=== PATIENT | female | born 1935 | race Caucasian/White ===

== ENCOUNTER → 2017-12-12 12:18 | Outpatient (CLI) | payer MEDICARE, SELFPAY ==
--- NOTE | 2017-12-12 | DI.US.S_ITS ---
ULTRASOUND OF LEFT BREAST: 12/12/2017 CLINICAL: Patient returns today to evaluate a focal asymmetry in the left breast. Comparison is made to exams dated: 10/31/2017 mammogram and 11/21/2017 mammogram - [facility]. Color flow and real-time ultrasound of the left breast were performed on the areas of interest. Stover scale images of the real-time examination were reviewed. There is a region in the left breast at 12 o'clock middle depth. This region is hypoechoic. Color flow imaging demonstrates that there is no increase in vascularity. It is unclear if this corresponds with the mammographic finding. IMPRESSION: PROBABLY BENIGN - FOLLOW-UP RECOMMENDED The hypoechoic region in the left breast likely represents fibroglandular tissue and is probably benign. A follow-up mammogram and an ultrasound in 6 months is recommended to demonstrate stability. This exam was interpreted at Station ID: [id number]. Electronically Signed By: Lela escobar/:12/12/2017 14:55:02 letter sent: Followup Recommended Ultrasound BI-RADS: 3 Probably benign
== END ==
PROVIDERS: PCP Family Medicine Geriatric Medicine; Visit Provider Physician Assistant Medical
DX: R92.2 Inconclusive mammogram (principal)
CPT/HCPCS: 76642

== ENCOUNTER → 2018-06-20 12:46 | Outpatient (CLI) | payer MEDICARE, SELFPAY ==
--- NOTE | 2018-06-20 | DI.US.S_ITS ---
ULTRASOUND OF LEFT BREAST: 06/20/2018 CLINICAL: Patient returns for a 6 month follow up of the left breast. Comparison is made to exams dated: 06/20/2018 mammogram, 12/12/2017 ultrasound - [facility], and 11/21/2017 mammogram - [facility]. Color flow and real-time ultrasound of the left breast were performed on the areas of interest. Stover scale images of the real-time examination were reviewed. There is a region in the left breast at 12 o'clock middle depth. This region is hypoechoic. Color flow imaging demonstrates that there is no increase in vascularity. IMPRESSION: PROBABLY BENIGN The region in the left breast likely represents fibroglandular tissue and is probably benign. A follow-up ultrasound in 6 months is recommended to demonstrate stability. This exam was interpreted at Station ID: [id number]. Electronically Signed By: Lela escobar/:06/20/2018 16:28:19 letter sent: Followup Recommended Ultrasound BI-RADS: 3 Probably benign
--- NOTE | 2018-06-20 | DI.MG.S_ITS ---
UNILATERAL LEFT DIGITAL DIAGNOSTIC MAMMOGRAM 3D/2D SHORT-TERM FOLLOW-UP: 06/20/2018 CLINICAL: Patient returns for a 6 month follow up of the left breast. Comparison is made to exams dated: 11/21/2017 mammogram, 10/31/2017 mammogram, and 10/25/2016 mammogram - [facility]. The tissue of left breast is heterogeneously dense. This may lower the sensitivity of mammography. No significant masses, calcifications, or other findings are seen in the breast. IMPRESSION: NEGATIVE There is no mammographic abnormality seen in the left breast to correspond with the previous mammography finding on the mammogram dated 11/21/17. Return to annual screening mammogram. A targeted ultrasound of the left breast is recommended to evaluate the previous ultrasound finding on the comparison study dated 12/12/17 and will be performed immediately following this exam. This exam was interpreted at Station ID: [id number]. NOTE: For mammograms, a report in lay terms will be sent to the patient. Approximately 15% of breast malignancies will not be visualized mammographically. In the management of a palpable breast mass, a negative mammogram must not discourage biopsy of a clinically suspicious lesion. Electronically Signed By: Lela escobar/:06/20/2018 16:30:22 letter sent: Additional Imaging Needed ACR BI-RADS Category 1: Negative [id number]
== END ==
PROVIDERS: Visit Provider Family Medicine
DX: R92.8 Other abnormal and inconclusive findings on diagnostic imaging of breast (principal)
CPT/HCPCS: 76642; 77065; G0279

== ENCOUNTER 2019-09-10 15:27 | Inpatient (IN) | payer MEDICARE, SELFPAY ==
[2019-09-05 13:57] VITALS: BMI 31.8
[2019-09-09] VITALS (12 sets, daily range): BP systolic 105–152; BP diastolic 39–72; PULSE 67–84; RESP 12–18; TEMP 35.9–37.1; O2SAT 92–100; BMI 32.8
--- NOTE | 2019-09-09 | DI.RAD.S_ITS ---
PROCEDURE: XR KNEE RT 1TO2V INDICATIONS: POST-OP TOTAL KNEE ARTHROPLASTY-RIGHT TECHNIQUE: 2 view(s) of the knee acquired. COMPARISON: None. FINDINGS: Bones: Patient is status post knee joint arthroplasty. Hardware components are in expected positions. Visualized bony structures are intact. Soft tissues: Overlying postoperative changes are noted. IMPRESSION: Expected appearance of total right knee arthroplasty. Dictated by: Emma Sosa M.D. on 09/09/2019 at 20:02 Approved by: Emma Sosa M.D. on 09/09/2019 at 20:03
[2019-09-09] MEDS: PREGABALIN 75 MG CAPSULE PO (12:46)
[2019-09-09] MEDS: ACETAMINOPHEN 325 MG TABLET 975 MG PO (12:46)
[2019-09-09] MEDS: CELECOXIB 200 MG CAPSULE PO (12:46)
--- NOTE | 2019-09-09 15:18 | PM.PREOP ---
Pre-operative Note Interval Note History & Physical reviewed/Exam performed by Physician: Yes Changes to H&P: No H&P completed within 30 days and has changed as indicated here:: Plan for R TKA
[2019-09-09] MEDS: LACTATED RINGERS 1,000 ML 42 ML IV ×2 (15:30→17:01)
[2019-09-09] MEDS: CEFAZOLIN 2 GM/100 ML FROZ.PIGGY IV (16:05)
--- NOTE | 2019-09-09 16:36 | SUR.OPER ---
Supine on padded OR bed. Pillow under head, arms secured on padded armboards <90 degree abduction. Bump under right hip. Safety belt across torso. Non-operative leg secured with tape over blanket over lower leg. Operative leg positioned on Dr. Asher's positioner.
[2019-09-09] MEDS: ROPIVACAINE 0.5% PF 5 MG/ML 20ML VIAL 60 ML INJ (16:51)
[2019-09-09] MEDS: MORPHINE 4 MG/ML INJ INJ (16:52)
[2019-09-09] MEDS: KETOROLAC 30 MG/ML VIAL IV (16:52)
[2019-09-09] MEDS: TRANEXAMIC ACID 1,000 MG VIAL 1000 MG INJ ×2 (16:53→18:02)
--- NOTE | 2019-09-09 18:16 | PM.OP.1 ---
Operative Date/Time/Diagnoses Date of procedure: 09/09/19 Time of procedure: 18:17 Pre-op diagnosis: R knee OA Post-op diagnosis: same Procedure & Clinicians Procedure: R TKA Same procedure as scheduled: Yes Indications: Right knee OA Surgeon: Neal Asher Follow Up Clerk: Karla Adames Anesthesia Type: General and Spinal Operative Notes Findings: Right knee OA with patellar mal-tracking Closure Type: primary Specimen(s): none sent Prosthetic devices, grafts, tissues, transplants, or devices: Reina and Nephew Journey II BCS size 3 right femur Reina [employer] Nephew Journey II BCS size 3 right tibia with 12 x100mm stem reina and Nephew Journey II BCS 10mm constrained poly 29mm x 7.5 mm poly round button Estimated Blood Loss (mL): 200 Tourniquet time (min): 90 Procedure in detail: Patient was met in the preoperative holding area the site and side of surgery marked by MD. Yan questions were answered. Patient was then brought back to the operating room with a received a spinal anesthetic and placed supine and placed under general anesthesia. The right lower extremity was prepped and draped in normal sterile fashion A time-out was performed verifying the site and side of surgery as well as into the patient. A 15 cm long incision in line with the long axis of the leg was made over the patella. Sharp dissection was carried down to the level of the quad tendon. A medial parapatellar arthrotomy was then performed. A medial peel of the MCL was then performed as well as removal of Hoffa's fat pad. Large osteophytes were then removed from the femur and patella at this time. The lateral meniscus was then removed as well as the ACL and PCL. A drill was used to enter the femoral canal. Same drill was then used to enter the tibial canal. The distal femoral cutting block was then placed and backed off 2 mm. Distal femoral cut was then made. Drop lorenzo was then placed on the center of the tibial canal and our tibial cutting block was then placed. We used external alignment as well as intramedullary guidance for placement of her tibial cutting block. Once the tibial cut was made tibial piece of bone was removed along with the medial meniscus. At this point due to poor bone quality we decided that we would add a stem to the tibial tray. Within use the spacer block to confirm that our extension space was good with a little tight on the lateral side a pie crusting of lateral structures of the performed. The balancing block was then used to guide our external rotation of the femoral component as well as the verification based off of our epicondylar axis. We sized to a size 3 femur this was then pinned in place and the anterior-posterior and chamfer cuts were then made. The box cut was then also performed. The tibial tray was then inserted with a 9 mm PS trial poly and floating technique was used to place our external rotation of her tibial component. This was then marked. Tray was then removed as well as the femoral trial components and the tibial tray was pinned in place and we drilled and punched for the tibial tray as well as the 12 mm x 100 mm tibial stem. We then turned our attention to the patella and this was freehand cut taking care to make a conservative cut. A 29 mm round patellar button was then chosen. This was then drilled for and a trial button was placed and brought through range of motion the patella tracked well. All trial components were then removed the bone was cleaned with pulse lavage a periarticular injection was then performed and a cement restrictor was placed down the center of the tibial canal. Cement was then placed down our tibial drill hole as well as on the tibial cut surface and the walk back of the tibial component. This was then placed and excess cement was removed. Cement was then placed on the distal femoral cut anterior femoral cut the anterior chamfer and the posterior chamber. As well as the feet of the femoral component. This was then malleted into place as well. A 9 mm PS poly was then placed and the knee was brought to full extension and the tibia was held in internal rotation. The patella button was then cemented. And a clamp was placed. Betadine was then placed into the surgical site while the cement cured. Once cement was cured Betadine was suctioned away and the joint was copiously irrigated with normal saline. The poly was then removed and a 10 mm constrained poly was trialed. This achieved better stability. A 10 mm constrained poly final insert was selected. The back knee was thoroughly cleaned of soft tissue and the poly was snapped into place. The medial parapatellar arthrotomy was closed with 1. Vicryl in interrupted fashion followed by a 1. Vicryl in the fat layer as a running suture followed by 2 Vicryl in the subcutaneous tissue followed by a strata fix the subcuticular tissue. A isma dressing was then applied. Complications: none Post-operative Condition: stable Disposition: PACU Plan for aftercare: Weightbearing as tolerated right lower extremity, ASA 81 mg b.i.d. for DVT prophylaxis.
--- NOTE | 2019-09-09 19:09 | SUR.PHASEI ---
Patient A/O. Denies pain/nausea. Garrett MARSHALL.
[2019-09-09] MEDS: LACTATED RINGERS 1,000 ML 125 ML IV (20:30)
[2019-09-09] MEDS: ACETAMINOPHEN 325 MG TABLET 650 MG PO (21:29)
[2019-09-09] MEDS: DOCUSATE 100 MG CAPSULE PO (21:29)
[2019-09-09] MEDS: ASPIRIN EC 81 MG TABLET PO (21:29)
[2019-09-09 21:48] LABS: Add Manual Diff / Slide Review NO; Basophils Absolute Auto 100 /uL (0-100); Basophils Percent Auto 0.4 % (0-2); Eosinophils Absolute Auto 100 /uL (0-450); Eosinophils Percent Auto 0.6 % (2-4); Hematocrit 34.6 % (36-46); Hemoglobin 11.6 g/dL (12.0-16.0); Lymphocytes Absolute Auto 1600 /uL (1100-4500); Lymphocytes Percent Auto 13.7 % (25-40); Mean Corpuscular HGB Conc 33.7 % (30-36); Mean Corpuscular Hemoglobin 31.9 PG (26-34); Mean Corpuscular Volume 94.8 fL (80-100); Monocytes Absolute Auto 600 /uL (0-900); Monocytes Percent Auto 4.8 % (3-14); Neutrophils Absolute Auto 9500 /uL (1500-7000); Neutrophils Percent Auto 80.5 % (50-75); Platelet Count 222 X10^3/uL (150-400); Red Blood Cell Count 3.65 X10^6/uL (4.0-5.2); Red Cell Distribution Width 13.7 % (11.6-14.8); White Blood Cell Count 11.8 X10^3/uL (4.5-11.0)
[2019-09-09] MEDS: SODIUM CHLORIDE 0.9% 1,000 ML 100 ML IV (23:24)
[2019-09-10] MEDS: OXYCODONE IR 5 MG TABLET PO (00:27)
[2019-09-10] MEDS: CEFAZOLIN 2 GM/100 ML FROZ.PIGGY IV ×2 (00:27→09:22)
[2019-09-10 04:32] VITALS: BP 143/65; PULSE 93; RESP 16; TEMP 36.8; O2SAT 93
--- NOTE | 2019-09-10 04:56 | DI.RAD.S_ITS ---
PROCEDURE: XR KNEE RT 1TO2V INDICATIONS: Patient lowered decent to floor TECHNIQUE: 2 view(s) of the knee acquired. COMPARISON: [facility], CR, XR KNEE RT 1TO2V, 09/09/2019, 18:46. FINDINGS: Bones: Patient is status post knee joint arthroplasty. Hardware components are in expected positions. Visualized bony structures are intact. Soft tissues: Overlying postoperative changes are noted. IMPRESSION: Expected postsurgical change for right knee arthroplasty. Dictated by: Corine Hollingsworth MD, PhD on 09/10/2019 at 9:15 Approved by: Corine Hollingsworth MD, PhD on 09/10/2019 at 9:16
[2019-09-10 05:57] LABS: Hematocrit 32.6 % (36-46); Hemoglobin 11.1 g/dL (12.0-16.0)
[2019-09-10] MEDS: ONDANSETRON 4 MG/2 ML INJ IV (06:16)
--- NOTE | 2019-09-10 06:38 | PC.NURSE ---
Pt had been AxOx4 at start of shift; At around 0415 pt was found on floor in room. This nurse was actually standing outside the room next door doing another admission and did not hear any bump or thud but heard a faint hello hello and pt was lying next to bed. Pt reports not hitting head, reports not further hurting knee. IV was ripped out, SCDs ripped off, she climbed over the side rails. She answered all questions appropriately while sitting on floor and states just wanting to get up to go to the [place]. She was clearly disoriented to some degree but able to correctly answer all other neuro questions. She had received 5mg Oxycodone more than 4hours prior to fall. Dr. Asher was called and ordered an x-ray of her knee and said he would assess pt in the morning. She was hoyered back into bed. Pt had also not voided since prior to surgery. She attempted many times to pee on bed tenorio unsuccessfully. She was bladder scanned at 0500 showing only 150cc urine. Dr. Asher notified and said to straight cath patient. She was straight cath'ed at 0600 and only 130cc dark pratik urine came out. IV was replaced and IVF restarted. She reports feeling a bit nauseous this morning. LOIS dressing has been functioning properly throughout shift.
--- NOTE | 2019-09-10 07:52 | P.PN_ITS ---
Subjective Subjective Date Patient Seen: 09/10/19 Time Patient Seen: 07:52 Interval history: POD #1 s/p right total knee arthroplasty with Dr. Asher. Patient became confused last night and she states she slowly fell to the ground. She states she was wrapped up into her blankets and very slowly fell onto the ground. Patient was unable to void. She was straight cathed with 130 cc of urine output this morning. Exam Vital Signs (past 8 hours): - 09/10/19 04:32 Temperature 98.3 F Pulse Rate 93 H Respiratory Rate 16 Blood Pressure 143/65 H Pulse Oximetry 93 Oxygen Delivery Method Room Air Oxygen Flow Rate 0 Narrative Exam Narrative: Patient lying in bed in NAD. She is alert and oriented X3. Patient was then sat up on edge of bed and she was able to straight leg raise and fully extend. Calves are soft, compressible, nontender bilaterally. Pulses are symmetrical. She is able to actively dorsiflex and plantar flex. Objective Labs Result Diagrams: 09/10/19 05:30 Labs: Laboratory Results - last 24 hr 09/09/19 09/10/19 21:40 05:30 WBC 11.8 H RBC 3.65 L Hgb 11.6 L 11.1 L Hct 34.6 L 32.6 L MCV 94.8 MCH 31.9 MCHC 33.7 RDW 13.7 Plt Count 222 Neut % (Auto) 80.5 H Lymph % (Auto) 13.7 L [place] % (Auto) 4.8 Eos % (Auto) 0.6 L Baso % (Auto) 0.4 Neut # (Auto) 9500 H Lymph # (Auto) 1600 [place] # (Auto) 600 Eos # (Auto) 100 Baso # (Auto) 100 Assessment & Plan Post-op Postoperative Procedures: Procedures Operation Date: 09/09/19 14:15 Actual Procedures Side Surgeon p Total Knee Arthroplasty Right Neal Asher MD Patient is no longer confused this morning. Would recommend limiting narcotics. If patient has to be straight cathed again recommending Cha for 24 hours. She will get 1 L bolus IV fluids. X-rays reviewed today demonstrating no fractures. Dr. Asher reviewed films as well. Due to patient's level of confusion last night, and acute urinary retention recommending inpatient status. When she was working with Physical therapy this morning she was a max assist. I am recommending she discharge to SNF for continued recovery after surgery. Quality VTE Deep Vein Thrombosis/Pulmonary Embolism Present on Admission: No
--- NOTE | 2019-09-10 07:58 | DI.RAD.S_ITS ---
PROCEDURE: XR KNEE RT 1TO2V INDICATIONS: fall last night TECHNIQUE: A set of 2 views of the knee were acquired. COMPARISON: [facility], CR, XR KNEE RT 1TO2V, 09/10/2019, 5:09. [facility], CR, XR KNEE RT 1TO2V, 09/09/2019, 18:46. FINDINGS: Bones: No fractures or dislocations, and the right total knee arthroplasty devices appear stable over time. No suspicious bony lesions. Soft tissues: No joint effusion. No suspicious soft tissue calcifications. There is, however, edema and heterogeneous radiodensity within the ventral soft tissues of the distal thigh seen on the lateral view, potentially an indication of soft tissue injury, muscular tear, or hematoma. IMPRESSION: No fracture found, stable appearance of total right knee a arthroplasty devices. Irregular heterogeneity in the soft tissues ventral to the knee and distal thigh consistent with potential hematoma or muscular tear. Depending on the clinical status followup by MR scanning may be warranted. Dictated by: Arnol Bravo M.D. on 09/10/2019 at 9:01 Approved by: Arnol Bravo M.D. on 09/10/2019 at 9:04
[2019-09-10] MEDS: SODIUM CHLORIDE 0.9% 1,000 ML 1000 ML IV (08:14)
[2019-09-10 08:49] VITALS: BP 130/71; PULSE 80; RESP 16; TEMP 36.4; O2SAT 98
[2019-09-10] MEDS: ASPIRIN EC 81 MG TABLET PO ×2 (09:21→21:47)
[2019-09-10] MEDS: DOCUSATE 100 MG CAPSULE PO ×2 (09:21→21:47)
[2019-09-10] MEDS: ACETAMINOPHEN 325 MG TABLET 650 MG PO ×3 (09:22→21:47)
--- NOTE | 2019-09-10 10:05 | PC.NURSE ---
Addendum entered by Ivana Marie R.N. 09/10/19 13:47: Patient just voided 250cc and bladder scanned for 0. There is an order for wallace placement if she cant void. Not placed yet as she did go. Addendum entered by Ivana Marie R.N. 09/10/19 13:09: Patient just voided 250cc on the bsc. She is back to bed. Resting comfortably. Original Note: Patient is A&Ox3, she knows not to try and get out of bed. No problems with cognition this morning. Patient states that last night, [place]. She states that she slid out of bed. Dressing to knee is cdi. Patient tried to void on the bsc but was unable...Will keep and eye on this and if she does not go in a couple of hours we will bladder scan her. Given tylenol for discomfort of around a 3/4 to knee.
--- NOTE | 2019-09-10 10:15 | PT.IIE ---
Current Diagnoses Unilateral primary osteoarthritis, right knee (09/09/19) Other specified joint disorders, right knee (09/09/19) Surgery Performed Operation Date: 09/09/19 14:15 Actual Procedures p Total Knee Arthroplasty(Right) - Neal sAher MD Surgical History (Last Updated 09/05/19 @ 14:17 by Vivian Rodgers RN) H/O removal of cyst (Acute ~1972) Hx of bilateral cataract extraction (Acute) Medical History (Last Updated 09/05/19 @ 14:17 by Vivian Rodgers RN) Hearing impaired (Acute) Incontinence (Acute) Osteoarthritis (Acute) Physical Therapy Inpatient Evaluation/Re-Eval M1 PT/OT-IP Prior Functional Status Start: 09/10/19 12:44 Freq: NEEDED Status: Active Protocol: Document 09/10/19 10:15 AB (Rec: 09/10/19 13:06 AB [email or web address]) Medical Review Prior Functional Status Medical History Reviewed Yes Communication able to make needs known but with some confusion Mobility and Gait pt staetd that she is modified independent with all mobilities and ambulation without AD indoors but occasionally uses a SPC; uses SPC outdoors Social History Household Members none Living Arrangements House Number of Floors (Floors) One Floor Number of Stairs To Enter/Railing? 2 steps to enter with L rail Home Environment High Toilet,Walk in Shower Home Equipment Front Wheel Walker,Hand Held Shower,Grab Bars In Shower M2 PT-IP Current Condition Start: 09/10/19 12:44 Freq: NEEDED Status: Active Protocol: Document 09/10/19 10:15 AB (Rec: 09/10/19 13:06 AB [email or web address]) Physical Therapy Current Condition Current Condition Evaluation Date 09/10/19 Treatment Diagnosis s/p R TKA; difficulty in walking Onset Date 09/09/2019 Precautions Other Precautions falls Weight Bearing Status Weight Bearing Status Weight Bear as Tolerated Allowed Weight Bearing Amount (enter % WBAT RLE or #) (%) M3 PT-IP Subjective Start: 09/10/19 12:44 Freq: NEEDED Status: Active Protocol: Document 09/10/19 10:15 AB (Rec: 09/10/19 13:06 AB [email or web address]) Subjective Physical Therapy Visit Type Type Initial Evaluation Visit Start Time 10:15 Visit Stop Time 11:03 Total Visit Minutes 48 Number of SEXUAL ASSAULT COUNSELOR Visits 0 Physical Therapy Visit Comments Patient Comments pt agreeable to do PT Therapy Pain Assessment Pain When Pain Assessed At Rest Pain Present Pain Present Pain Reported Location Right Knee Intensity 2 Scale Used Numeric (1 - 10) Pain Management Techniques Apply Cold,Re-positioning, Timing of Activity with Medications M4 PT-IP Mobility and Gait Start: 09/10/19 12:44 Freq: NEEDED Status: Active Protocol: Document 09/10/19 10:15 AB (Rec: 09/10/19 13:06 AB [email or web address]) PT-Bed Mobility Assessment Rolling Level of Assist Maximal Assistance,1 Person Assistance,2 Person Assistance Supine to Sit Supine to Sit Maximum Assistance,1 Person Assistance,2 Person Assistance PT-Transfer Assessment Sit to and From Stand Sit to and from Stand Maximum Assistance,2 Person Assistance,Use of Upper Extremities Equipment Transfer Assistive Device Gait Belt,Front Wheeled Walker Orthotic/Prosthetic Devices or Brace: No Transfers Transfer Destination Chair Transfer Technique Stand Step Pivot Transfer Ability Level of Assist Moderate Assistance,Maximum Assistance,1 Person Assistance ,Use of Upper Extremities Comments Mobility Comments completed supine to sit max A x 1-2 and max cues. pt was able to sit on EOB requiring mod A for balance with increase posterior trunk lean requiring cues to correct posture. pt completed sit to stand max A x 2 and max cues with increase knee pushing against the bed and max cues for upright posture. pt completed stand step transfer using FWW to the chair max A x 1-2 and max cues. pt agreed to do more ambulatiion and completed in room. agreed to sit up on chair. positioned on chair. ice pack provided. call light and table placed within reach. Gait Assessment Gait Gait Assistance Required: Moderate Assistance,Maximum Assistance,1 Person Assist Distance (Feet) 10 Able to Maintain Weight Bearing Status Yes During Gait Assistive Devices Assistive Device Gait Belt,Small Based Quad Cane,Front Wheeled Walker Gait Deviations General Gait Pattern Antalgic,Decreased Stride Length,Decreased Feet Clearance,Step-to Gait Factors Limiting Gait Function Factors Limiting Gait Function Decreased Activity Tolerance, Decreased Strength,Difficulty Following Directions,Limited Range of Motion,Pain,Poor Balance,Poor Safety Awareness Comments Gait Comments completed ambulation 10 ft using FWW mod to max A and max cues. PT-Balance Assessment Sitting Balance and Reactions Static Sitting Balance Ability Fair Dynamic Sitting Balance Ability Poor Standing Balance and Reactions Static Standing Balance Ability Poor Dynamic Standing Balance Ability Poor Device Used FWW M5 PT-IP Objective Assessments Start: 09/10/19 12:44 Freq: NEEDED Status: Active Protocol: Document 09/10/19 10:15 AB (Rec: 09/10/19 13:06 AB [email or web address]) Orientation Orientation/Cognition Level of Alertness Alert Orientation Name,Age,Month,Year,Place, Situation Safety Awareness Decreased Safety Awareness Memory Description Short Term Impaired Gross Range of Motion Lower Extremity ROM Assessment Right Impaired Impairments R knee flexion : ~ 60 deg Strength Lower Extremity Strength Assessment Right Impaired Hip 3+/5 Knee 3-/5 Coordination Assessment Gross Coordination Gross Coordination WNL Sensation Assessment Sensation Gross Sensation WNL Muscle Tone Muscle Tone WNL Yes M6 PT-IP Treatment Start: 09/10/19 12:44 Freq: NEEDED Status: Active Protocol: Document 09/10/19 10:15 AB (Rec: 09/10/19 13:06 AB [email or web address]) Physical Therapy Treatment Exercises Exercises Heel Slides Education Education Provided Precautions,Weight Bearing Status,Post-Op Packet,Safety M7 PT-IP Assessment and Plan Start: 09/10/19 12:44 Freq: NEEDED Status: Active Protocol: Document 09/10/19 10:15 AB (Rec: 09/10/19 13:06 AB [email or web address]) PT Summary Assessment and Plan Potential Rehabilitation Potential Good Status of Condition at Evaluation Evolving Summary Impairments Pain,ROM,Strength,Balance, Coordination,Sensation,Tone, Cognition,Bed Mobility, Transfers,Gait,Activity Tolerance Assessment Summary pt requiring 2 person assist for mobility at this time. pt lives alone and will not have consistent assistance at home . pt will require SNF rehab to improve strength and independence. Goals Bed Mobility Goal Standby Assistance Transfer Goal Standby Assistance,Front Wheeled Walker Gait Goal Standby Assistance,Front Wheel Walker Gait Distance 100 Other Goals up/down 2 steps L rail ascending CGA Days to Meet Goals 10 Frequency of Treatment Frequency Of Treatment Twice a Day Treatment Plan Physical Therapy Treatment Plan Bed Mobility Training,Transfer Training,Gait Training, Therapeutic Exercise,Balance Retraining,Post Op Education, Discharge Planning,Hot or Cold Pack,Neuromuscular Re-ed, Coordination Retraining,Manual Therapy Other Recommendations and Next Treatment ambulation Focus Recommendations To Nursing Amount of Assist Needed 2 Person Assist Discharge Recommendations PT Discharge Recommendations SNF Rehab Transportation Needs at Discharge Private Vehicle,Wheelchair/ Cabulance
--- NOTE | 2019-09-10 12:14 | CM.DANOTE ---
Addendum entered by Willow Richardson LPN 09/10/19 15:46: Admission status: now confirmed by KITA Garcia: Change from OBS to INPT: as of 09/10/19. Addendum entered by Willow Richardson LPN 09/10/19 12:58: [facility] has accepted pt when stable for same. Original Note: Discharge Planning/Care Management DCP: assessment: Case received, EMR reviewed and met with pt and a friend, at bedside. Pt gives permission to speak while her friend is in the room. Introduced self and role. Pt is an 84 year old female who admitted yesterday for a planned R TKA. ugeon: Dr. Asher PCP: Ritika Ocampo/[facility] in Monday. Payer: Medicare [facility] Admission status: INPT: per KITA Garcia: he adds that date of INPT order is still under review (either 17 or 18). Pt confirms that [place] live alone[place] but that first she is planning snf level rehab. She confirms she was aware that admission status would affect her abilitiy to access her Medicare snf benefit and I was prepared to pay for this privately if I had to. SNF choice list: discussed: decision: [facility]: now [facility] ([facility]) Referral: [facility] is reviewing, has a bed and anticipates acceptance. PASRR: will be needed. P: [facility] when stable for same CM Discharge Assessment Start: 09/10/19 12:10 Freq: Status: Active Protocol: Document 09/10/19 12:10 ITV (Rec: 09/10/19 12:13 ITV [id number]) Discharge Planning Assessment Advance Directives? Yes Advance Directives on File No History Provided By Patient,Medical Record Prior Living Arrangements House Household Members none Is patient alert and oriented? Yes: appears so at time of this meeting. Patient/Family Preference Long-Term Facility Medicare Choice List Provided Yes Whiteboard Updated in Patient Room with Yes name and ext. # of Battery Technician Pre-Anesthesia Assessment Start: 09/05/19 13:57 Freq: Status: Active Protocol: Document 09/05/19 13:57 CAB (Rec: 09/05/19 14:46 CAB [id number]) Pre-Anesthesia Assessment Patient Information Reviewed Via Phone Assessment Assessment Completed With Patient Diagnostic Results BMP/CMP,CBC,EKG Comment Outside labs/EKG(report only, no tracing) scanned to record Primary Care Provider Ritika Ocampo Primary Language [place] Splicer Helper Required No Height 160.02 cm Weight 81.647 kg Body Mass Index (BMI) 31.8 Hearing Ability Hard of Hearing Visual Assist Glasses Dentition Type Teeth, Natural Present Barriers to Learning None Hx Anesthesia Reactions No Hx Family Anesthesia Reaction No Hx Malignant Hyperthermia No Hx Blood Transfusions No Anesthesia Review Requested No Business Process Specialist Yes: Pt wants to discharge to senior care alcohol intake current alcohol intake frequency holidays/special occasions only Smoking Status Former smoker how long ago did patient quit smoking Quit 1973 Substance Use Type does not use Pain Present Pain Reported Musculoskeletal Symptoms Abnormal Gait,Difficulty Walking,Joint Pain History of Falling (Recent or History of No ) Patient is completely paralyzed or No completely immobile Prosthesis or Orthotic Device Cane Mental Status Oriented to own ability Is patient on oxygen? No Does patient have PATEL/SOB No Hx Sleep Apnea No Currently Taking a Beta Aldo No Can You Climb a Flight of Stairs Without Yes SOB Hx Chest Pain No Hx SOB No Hx Syncope or Dizziness No Anti-Coagulant Therapy No Has a Silo Filler No Cardiac Testing No Hx Pacemaker/ICD No Pacemaker Rep Required? No Cardiac Clearance Received Not Applicable Diet Type At Home Regular dysphagia No Bladder Pattern Frequency,Incontinent,Urgency Urinary Catheter Present No Hx Urinary Self Catheterization No Diabetes No Patient No Lactating No Hx Drug Resistant Organism No Presence of External or Internal Medical Yes: Bilat eye lens Devices Have you traveled outside the [facility] in the last 30 days? Marital Status / Lives With none Prior Living Arrangements House Number of Floors (Floors) One Floor Does the Patient Have Assistance After Pt does not have anyone to Surgery assist w/care @ [facility] Patient Discharge Plan Description Long-Term Facility/Rehab Comment Pt wants to go to SNF Feels Safe in Current Environment Yes Been Physically Hurt or Threatened By a No Person in Current Environment Do you have thoughts of harming yourself None or others? Are you currently considering suicide? No Do you have a plan to hurt yourself or No Plan others? Do You Have Any Spiritual Beliefs That No May Affect Your HC Choices? Do You Have Any Cultural Practices That No May Affect Your HC Choices? Comment [facility] Who Can We Speak to About Patient's Care Family, friends Identifying Code for Release of Patient Declines to issue Information Health Care Proxy/Next of Kin Vivian Keith (Friend) Health Care Proxy Emergency Contact Name Vivian Parker (Friend) Emergency Contact Advance Directives? Yes Advance Directives on File No Requested Patient Bring Advanced Yes Directives DOS PAC Instructions Do not shave/clip surgical site,Durable medical equipment ,Medications to take/avoid, Nasal antibiotic,No ETOH/ petroleum product on skin DOS, NPO,Post-op transportation,Pre -surgical wash,Sturdy shoes/ comfortable clothes,Do not bring valuables and remove jewelry
[2019-09-10 12:53] VITALS: BP 150/69; PULSE 85; RESP 16; TEMP 37.1; O2SAT 97
[2019-09-10 15:23] VITALS: BP 121/54; PULSE 76; RESP 18; TEMP 36.8; O2SAT 99
--- NOTE | 2019-09-10 15:40 | PT.IPTN ---
Current Diagnoses Unilateral primary osteoarthritis, right knee (09/09/19) Other specified joint disorders, right knee (09/09/19) Surgery Performed Operation Date: 09/09/19 14:15 Actual Procedures p Total Knee Arthroplasty(Right) - Neal Asher MD Physical Therapy Treatment Note M2 PT-IP Current Condition Start: 09/10/19 12:44 Freq: NEEDED Status: Active Protocol: Document 09/10/19 10:15 AB (Rec: 09/10/19 13:06 AB [email or web address]) Physical Therapy Current Condition Current Condition Evaluation Date 09/10/19 Treatment Diagnosis s/p R TKA; difficulty in walking Onset Date 09/09/2019 Precautions Other Precautions falls Weight Bearing Status Weight Bearing Status Weight Bear as Tolerated Allowed Weight Bearing Amount (enter % WBAT RLE or #) (%) M3 PT-IP Subjective Start: 09/10/19 12:44 Freq: NEEDED Status: Active Protocol: Document 09/10/19 15:40 AB (Rec: 09/10/19 17:48 AB [email or web address]) Subjective Physical Therapy Visit Type Type Treatment Note Visit Start Time 15:40 Visit Stop Time 16:18 Total Visit Minutes 38 Number of PUBLIC SPEAKING TEACHER Visits 0 Physical Therapy Visit Comments Patient Comments pt requested to use the toilet Therapy Pain Assessment Pain When Pain Assessed At Rest Pain Present Pain Present Pain Reported Location Right Knee Intensity 5 Scale Used Numeric (1 - 10) Pain Management Techniques Re-positioning,Timing of Activity with Medications M4 PT-IP Mobility and Gait Start: 09/10/19 12:44 Freq: NEEDED Status: Active Protocol: Document 09/10/19 15:40 AB (Rec: 09/10/19 17:48 AB [email or web address]) PT-Transfer Assessment Sit to and From Stand Sit to and from Stand Moderate Assistance,1 Person Assistance,Use of Upper Extremities Equipment Transfer Assistive Device Gait Belt,Front Wheeled Walker Orthotic/Prosthetic Devices or Brace: No Transfers Transfer Destination Toilet Transfer Technique ambulated using FWW Transfer Ability Level of Assist Moderate Assistance,1 Person Assistance,Use of Upper Extremities Comments Mobility Comments completed sit to stand mod A and cues. ambulated using FWW towards the toilet using FWW mod A and cues. was able to maintain standing balance using FWW mod A and cues while assisted with brief management. pt requested to go back on the chair and ambulated back to the chair using FWW mod A and cues. positioned pt on the chair. call light and table placed within reach. Gait Assessment Gait Gait Assistance Required: Moderate Assistance Distance (Feet) 10 Able to Maintain Weight Bearing Status Yes During Gait Assistive Devices Assistive Device Gait Belt,Front Wheeled Walker Gait Deviations General Gait Pattern Antalgic,Decreased Stride Length,Decreased Feet Clearance,Step-to Gait Factors Limiting Gait Function Factors Limiting Gait Function Decreased Activity Tolerance, Decreased Strength,Limited Range of Motion,Pain,Poor Balance,Poor Safety Awareness Comments Gait Comments ambulated using FWW ~ 10 ft x2 mod A and cues. M5 PT-IP Objective Assessments Start: 09/10/19 12:44 Freq: NEEDED Status: Active Protocol: Document 09/10/19 10:15 AB (Rec: 09/10/19 13:06 AB [email or web address]) Orientation Orientation/Cognition Level of Alertness Alert Orientation Name,Age,Month,Year,Place, Situation Safety Awareness Decreased Safety Awareness Memory Description Short Term Impaired Gross Range of Motion Lower Extremity ROM Assessment Right Impaired Impairments R knee flexion : ~ 60 deg Strength Lower Extremity Strength Assessment Right Impaired Hip 3+/5 Knee 3-/5 Coordination Assessment Gross Coordination Gross Coordination WNL Sensation Assessment Sensation Gross Sensation WNL Muscle Tone Muscle Tone WNL Yes M6 PT-IP Treatment Start: 09/10/19 12:44 Freq: NEEDED Status: Active Protocol: Document 09/10/19 15:40 AB (Rec: 09/10/19 17:48 AB [email or web address]) Physical Therapy Treatment Exercises Exercises Ankle Pumps,Quad Sets,Heel Slides Education Education Provided Safety M7 PT-IP Assessment and Plan Start: 09/10/19 12:44 Freq: NEEDED Status: Active Protocol: Document 09/10/19 15:40 AB (Rec: 09/10/19 17:48 AB [email or web address]) PT Summary Assessment and Plan Potential Rehabilitation Potential Good Summary Impairments Pain,ROM,Strength,Balance, Coordination,Sensation,Tone, Cognition,Bed Mobility, Transfers,Gait,Activity Tolerance Progress Towards Goals Slow Progress due to Pain,Slow Progress due to Activity Tolerance Assessment Summary pt requiring mod A with mobility and continues to have decrease activity tolerance also requires cues for safety. pt will require SNF rehab to improve strength and mobility . Goals Bed Mobility Goal Standby Assistance Transfer Goal Standby Assistance,Front Wheeled Walker Gait Goal Standby Assistance,Front Wheel Walker Gait Distance 100 Other Goals up/down 2 steps L rail ascending CGA Days to Meet Goals 10 Frequency of Treatment Frequency Of Treatment Twice a Day Treatment Plan Physical Therapy Treatment Plan Bed Mobility Training,Transfer Training,Gait Training, Therapeutic Exercise,Balance Retraining,Post Op Education, Discharge Planning,Hot or Cold Pack,Neuromuscular Re-ed, Coordination Retraining,Manual Therapy Other Recommendations and Next Treatment ambulation Focus Recommendations To Nursing Amount of Assist Needed 2 Person Assist Discharge Recommendations PT Discharge Recommendations SNF Rehab Transportation Needs at Discharge Private Vehicle,Wheelchair/ Cabulance
[2019-09-10] MEDS: SODIUM CHLORIDE 0.9% 1,000 ML 100 ML IV (15:45)
--- NOTE | 2019-09-10 19:21 | PC.NURSE ---
Addendum entered by Coral Young R.N. 09/10/19 22:09: Pt presents a little confused at times. Med w/tylenol for pain w/good relief. LOIS dsg CDI. Stable post op course. Call light w/in reach, bed alarm on for pt safety. Continue w/plan of care. Original Note: Pt sitting in chair, Denies discomfort LOIS dsg CDI IVF of NS @ 100cc/hr via pump infusing into the right hand w/o incidence. Satisfactory post op course. Call light w/in reach, pt calls appropriately for needs.
[2019-09-10 19:34] VITALS: BP 124/54; PULSE 77; RESP 19; TEMP 36.6; O2SAT 96
[2019-09-11] VITALS (7 sets, daily range): BP systolic 127–160; BP diastolic 55–71; PULSE 82–91; RESP 16–20; TEMP 36.8–37.4; O2SAT 94–100
[2019-09-11 06:30] LABS: Blood Urea Nitrogen 9 mg/dL (7-17); Calcium 8.6 mg/dL (8.4-10.2); Carbon Dioxide 26 mmol/L (22-32); Chloride 110 mmol/L (98-107); Estimated Glomerular Filt Rate > 60.0 mL/min (>60); Glucose 106 mg/dL (80-110); HEMOLYSIS < 15 (0-50); Potassium 3.4 mmol/L (3.4-5.1); Sodium 140 mmol/L (137-145)
--- NOTE | 2019-09-11 06:30 | PC.NURSE ---
Pt slightly confused overnight, knew she was at [facility] but unsure why she is here. Pt able to be reoriented but lasts for short time (minutes). Assured pt she is safe here and her knee surgery went well and now she is healing. Pt requested to read her book during the night and was able to fall asleep. CMS intact to right lower extremity. LOIS drain with battery indicator green. DSG to right knee intact with 1.5 inch shadow drainage. SCDs on overnight. Assisted with position change/weight shift q2hrs overnight. Bed alarm on. Pt expected to work with PT today.
--- NOTE | 2019-09-11 08:18 | PM.PNPO.1 ---
Subjective Subjective Date Patient Seen: 09/11/19 Time Patient Seen: 08:18 Interval history: Pain is moderate. Denies fever chills. No nausea vomiting. Exam Vital Signs (past 8 hours): - 09/11/19 01:30 09/11/19 05:00 Temperature 98.5 F 98.4 F Pulse Rate 82 89 Respiratory Rate 16 16 Blood Pressure 148/64 H 148/69 H Pulse Oximetry 98 100 Oxygen Delivery Method Room Air Oxygen Flow Rate 0 Narrative Exam Narrative: Pleasant 84-year-old female resting comfortably in bedside chair in no apparent distress. Right knee dressing is clean, dry and intact. Motor functions intact distal bilateral lower extremities. Sensation grossly intact to light touch. Both legs are warm and dry. Objective Labs Result Diagrams: 09/10/19 05:30 09/11/19 05:57 Labs: Laboratory Results - last 24 hr 09/11/19 05:57 Sodium 140 Potassium 3.4 Chloride 110 H Carbon Dioxide 26 BUN 9 Creatinine 0.50 L Estimated GFR > 60.0 BUN/Creatinine Ratio 18.0 Glucose 106 Calcium 8.6 Assessment & Plan Post-op Postoperative Procedures: Procedures Operation Date: 09/09/19 14:15 Actual Procedures Side Surgeon p Total Knee Arthroplasty Right Neal Asher MD postop day 2 status post right total knee arthroplasty. Patient lives alone. Currently requiring 2 person assist with physical therapy. Physical therapy is recommended senior care facility placement. Patient will mobilize with physical therapy today. Likely discharge to senior care facility tomorrow. Quality VTE Deep Vein Thrombosis/Pulmonary Embolism Present on Admission: No
--- NOTE | 2019-09-11 09:31 | PT.IPTN ---
Current Diagnoses Unilateral primary osteoarthritis, right knee (09/09/19) Other specified joint disorders, right knee (09/09/19) Surgery Performed Operation Date: 09/09/19 14:15 Actual Procedures p Total Knee Arthroplasty(Right) - Neal Asher MD Physical Therapy Treatment Note M2 PT-IP Current Condition Start: 09/10/19 12:44 Freq: NEEDED Status: Active Protocol: Document 09/10/19 10:15 AB (Rec: 09/10/19 13:06 AB [email or web address]) Physical Therapy Current Condition Current Condition Evaluation Date 09/10/19 Treatment Diagnosis s/p R TKA; difficulty in walking Onset Date 09/09/2019 Precautions Other Precautions falls Weight Bearing Status Weight Bearing Status Weight Bear as Tolerated Allowed Weight Bearing Amount (enter % WBAT RLE or #) (%) M3 PT-IP Subjective Start: 09/10/19 12:44 Freq: NEEDED Status: Active Protocol: Document 09/11/19 09:31 AB (Rec: 09/11/19 11:31 AB [id number]) Subjective Physical Therapy Visit Type Type Treatment Note Visit Start Time 09:31 Visit Stop Time 09:50 Total Visit Minutes 19 Number of INTERLINE CLERK Visits 0 Physical Therapy Visit Comments Patient Comments pt agreeable to do PT Therapy Pain Assessment Pain When Pain Assessed At Rest Pain Present Pain Present Pain Reported Location Right Knee Intensity 5 Scale Used Numeric (1 - 10) Pain Management Techniques Re-positioning,Timing of Activity with Medications M4 PT-IP Mobility and Gait Start: 09/10/19 12:44 Freq: NEEDED Status: Active Protocol: Document 09/11/19 09:31 AB (Rec: 09/11/19 11:31 AB [id number]) PT-Transfer Assessment Sit to and From Stand Sit to and from Stand Moderate Assistance,1 Person Assistance,Use of Upper Extremities Equipment Transfer Assistive Device Gait Belt,Front Wheeled Walker Orthotic/Prosthetic Devices or Brace: No Transfers Transfer Destination Toilet Transfer Technique ambulated using FWW Transfer Ability Level of Assist Moderate Assistance,1 Person Assistance,Use of Upper Extremities Comments Mobility Comments completed sit to stand mod A and cues. requested to use the toilet and completed ambulation using FWW mod A and cues. required cues for safety. required min to mod A for controlled descent to the toilet. completed sit to stand from the toilet using grab bar min A and cues. required min A to maintain standing with FWW while assisted with brief management . ambulated to the sink using FWW mod A and cues and was able to maintain standing by the sink CGA while completing handwashing. pt agreed to do more ambulation and ambulated in room ~ 30 ft using FWW mod A and cues. pt sat back on the chair. positioned on the chair. call light and table placed within reach. Gait Assessment Gait Gait Assistance Required: Moderate Assistance,1 Person Assist Distance (Feet) 30 Able to Maintain Weight Bearing Status Yes During Gait Assistive Devices Assistive Device Gait Belt,Front Wheeled Walker Orthotic/Prosthetic Devices or Brace: No Gait Deviations General Gait Pattern Antalgic,Decreased Stride Length,Decreased Feet Clearance Factors Limiting Gait Function Factors Limiting Gait Function Decreased Activity Tolerance, Decreased Strength,Difficulty Following Directions,Limited Range of Motion,Pain,Poor Balance,Poor Safety Awareness M5 PT-IP Objective Assessments Start: 09/10/19 12:44 Freq: NEEDED Status: Active Protocol: Document 09/10/19 10:15 AB (Rec: 09/10/19 13:06 AB [email or web address]) Orientation Orientation/Cognition Level of Alertness Alert Orientation Name,Age,Month,Year,Place, Situation Safety Awareness Decreased Safety Awareness Memory Description Short Term Impaired Gross Range of Motion Lower Extremity ROM Assessment Right Impaired Impairments R knee flexion : ~ 60 deg Strength Lower Extremity Strength Assessment Right Impaired Hip 3+/5 Knee 3-/5 Coordination Assessment Gross Coordination Gross Coordination WNL Sensation Assessment Sensation Gross Sensation WNL Muscle Tone Muscle Tone WNL Yes M6 PT-IP Treatment Start: 09/10/19 12:44 Freq: NEEDED Status: Active Protocol: Document 09/11/19 09:31 AB (Rec: 09/11/19 11:31 AB [id number]) Physical Therapy Treatment Exercises Exercises Quad Sets,Heel Slides Education Education Provided Safety Other Treatments Other Treatment Performed completed LE heel slides and quads sets prior to ambulation M7 PT-IP Assessment and Plan Start: 09/10/19 12:44 Freq: NEEDED Status: Active Protocol: Document 09/11/19 09:31 AB (Rec: 09/11/19 11:31 AB [id number]) PT Summary Assessment and Plan Potential Rehabilitation Potential Good Summary Impairments Pain,ROM,Strength,Balance, Coordination,Sensation,Tone, Cognition,Bed Mobility, Transfers,Gait,Activity Tolerance Progress Towards Goals Slow Progress due to Pain,Slow Progress due to Activity Tolerance Assessment Summary pt requiring progressing slowly and requires mod A with ambulation using FWW. will require 24/7 assist at this time and will need SNF rehab to improve strength and independence. Goals Bed Mobility Goal Standby Assistance Transfer Goal Standby Assistance,Front Wheeled Walker Gait Goal Standby Assistance,Front Wheel Walker Gait Distance 100 Other Goals up/down 2 steps L rail ascending CGA Days to Meet Goals 10 Frequency of Treatment Frequency Of Treatment Twice a Day Treatment Plan Physical Therapy Treatment Plan Bed Mobility Training,Transfer Training,Gait Training, Therapeutic Exercise,Balance Retraining,Post Op Education, Discharge Planning,Hot or Cold Pack,Neuromuscular Re-ed, Coordination Retraining,Manual Therapy Other Recommendations and Next Treatment ambulation Focus Recommendations To Nursing Amount of Assist Needed 1 Person Assist Discharge Recommendations PT Discharge Recommendations SNF Rehab Transportation Needs at Discharge Private Vehicle,Wheelchair/ Cabulance
[2019-09-11] MEDS: ASPIRIN EC 81 MG TABLET PO ×2 (10:34→19:59)
[2019-09-11] MEDS: ACETAMINOPHEN 325 MG TABLET 650 MG PO ×3 (10:34→19:59)
[2019-09-11] MEDS: DOCUSATE 100 MG CAPSULE PO ×2 (10:34→19:59)
--- NOTE | 2019-09-11 12:29 | CM.DPC ---
DCP Cont: Verified with Liliana at [facility] that they can accept patient. Met with patient, friend, Primitivo Romo was at bedside. Patient was sitting up in her chair. Wanted to know when she would be going over to skilled facility. Updated her that inpatient status started yesterday, 09/10, so she would need to be here until 09/13, Monday. Let her know that [facility] would provide transportation, and would let her know the time of pick up attendant. Confirmed with patient that she lives alone. She does have supportive friends in the area, but feels that she will need additional rehab before going home. Went ahead and completed PASSR. P: DCP to continue to follow. Patient can be discharged Monday to [facility]. Katharina Guerrero RN/Loin Puller
--- NOTE | 2019-09-11 14:16 | PC.NURSE ---
Assess- Patient is doing better today. She has been taking tylenol for pain and does not want to take any oxycodone as she states that it makes her confused. She is up in the chair resting, had some visitors today, and appetite is good. Up to the commode to void and sitting in chair now. Patient working with physical therapy. She will be going to the nursing home facility for physical therapy and will probably leave on monday.
--- NOTE | 2019-09-11 14:53 | PT.IPTN ---
Current Diagnoses Unilateral primary osteoarthritis, right knee (09/09/19) Other specified joint disorders, right knee (09/09/19) Surgery Performed Operation Date: 09/09/19 14:15 Actual Procedures p Total Knee Arthroplasty(Right) - Neal Asher MD Physical Therapy Treatment Note M2 PT-IP Current Condition Start: 09/10/19 12:44 Freq: NEEDED Status: Active Protocol: Document 09/10/19 10:15 AB (Rec: 09/10/19 13:06 AB [email or web address]) Physical Therapy Current Condition Current Condition Evaluation Date 09/10/19 Treatment Diagnosis s/p R TKA; difficulty in walking Onset Date 09/09/2019 Precautions Other Precautions falls Weight Bearing Status Weight Bearing Status Weight Bear as Tolerated Allowed Weight Bearing Amount (enter % WBAT RLE or #) (%) M3 PT-IP Subjective Start: 09/10/19 12:44 Freq: NEEDED Status: Active Protocol: Document 09/11/19 14:13 SP (Rec: 09/11/19 15:23 SP [email or web address]) Subjective Physical Therapy Visit Type Type Treatment Note Visit Start Time 14:13 Visit Stop Time 14:53 Total Visit Minutes 40 Number of CHIEF MAINTENANCE SUPERVISOR Visits 1 Physical Therapy Visit Comments Patient Comments Pt agreeable to PT today. Therapy Pain Assessment Pain When Pain Assessed During Mobility Pain Present Pain Present Pain Reported Location Right Knee Intensity 5 Scale Used Numeric (1 - 10) Pain Management Techniques Re-positioning M4 PT-IP Mobility and Gait Start: 09/10/19 12:44 Freq: NEEDED Status: Active Protocol: Document 09/11/19 14:13 SP (Rec: 09/11/19 15:23 SP [email or web address]) PT-Bed Mobility Assessment Supine to Sit Supine to Sit Contact Guard Assistance,Head of Bed Elevated Sit to Supine Sit to Supine Minimal Assistance,1 Person Assistance Scooting Scooting to Edge of Bed Contact Guard Assistance Scooting Up and Down in Bed Standby Assistance PT-Transfer Assessment Sit to and From Stand Sit to and from Stand Contact Guard Assistance, Minimal Assistance,Use of Upper Extremities Equipment Transfer Assistive Device Gait Belt,Front Wheeled Walker Orthotic/Prosthetic Devices or Brace: No Transfers Transfer Destination Bed,Chair Transfer Technique ambulated usign FWW Transfer Ability Level of Assist Contact Guard Assistance, Minimal Assistance,1 Person Assistance,Use of Upper Extremities Comments Mobility Comments Patient was sitting in chair when arrived. Assist requried to lower foot rest. Sit to stand Kit initially then CGA rest of performances with occasional cuing for proper hand placement for safety. Pt used FWW for support in standing and ambulted to door and little down hallway usign FWW CGA with cuing for increase R knee flexion, heel toe and step over step rather then step to gait with noted improved toward normal gait phases and foot clearance. Pt reported R knee pain decrease from 5/10 to 3/10 during mobilitiy less stiff now that up and walking around. Pt required CGA durign standing at sink to brush her teeth, educated for proper FWW positioning in front and she contacted [facility] for balance when returned from a walk, required SBA for safety. Pt was able to complete sitting to supine Min A (15 % A)for RLE into bed but educated use of gait belt for increased independence for self performance. Pt was able to lateral scoot her RLE using gait belt on foot and pelvis bridge in bed using LLE bridging technique. Elevated 40 % supine to sitting to EOB with use of strap self RLE to EOB and forward scoot herself CGA. Pt required CGA to sit to stand from EOB and step pivot to chair usign FWW with occasional awareness cue for centering in front of chair with good hand placement reaching back with slow descent. Assisted elevation of chair leg rest and donned chair alarm with call light and all needs inreach before left. Nurse and anesthesiologist assistant present during standing at sink for medication. Gait Assessment Gait Gait Assistance Required: Contact Guard Assist Distance (Feet) 100 Able to Maintain Weight Bearing Status Yes During Gait Assistive Devices Assistive Device Gait Belt,Front Wheeled Walker Orthotic/Prosthetic Devices or Brace: No Gait Deviations General Gait Pattern Antalgic,Decreased Stride Length,Decreased Feet Clearance,Step-to Gait Factors Limiting Gait Function Factors Limiting Gait Function Decreased Activity Tolerance, Decreased Strength,Difficulty Following Directions,Limited Range of Motion,Pain,Poor Balance,Poor Safety Awareness Comments Gait Comments Pt was ableto increase distance during gait this afternoon using FWW CGA, step to initially then progressed to step over step along with cuing for R knee flexion, heel toe to progress normal gait phases with good follow through. Stair Climbing Assessment Comments Stair Climbing Comments not assessed at this time. Will need to assess prior to DC home. PT-Balance Assessment Sitting Balance and Reactions Static Sitting Balance Ability Normal Dynamic Sitting Balance Ability Good Standing Balance and Reactions Static Standing Balance Ability Good Dynamic Standing Balance Ability Fair Device Used FWW M5 PT-IP Objective Assessments Start: 09/10/19 12:44 Freq: NEEDED Status: Active Protocol: Document 09/10/19 10:15 AB (Rec: 09/10/19 13:06 AB [email or web address]) Orientation Orientation/Cognition Level of Alertness Alert Orientation Name,Age,Month,Year,Place, Situation Safety Awareness Decreased Safety Awareness Memory Description Short Term Impaired Gross Range of Motion Lower Extremity ROM Assessment Right Impaired Impairments R knee flexion : ~ 60 deg Strength Lower Extremity Strength Assessment Right Impaired Hip 3+/5 Knee 3-/5 Coordination Assessment Gross Coordination Gross Coordination WNL Sensation Assessment Sensation Gross Sensation WNL Muscle Tone Muscle Tone WNL Yes M6 PT-IP Treatment Start: 09/10/19 12:44 Freq: NEEDED Status: Active Protocol: Document 09/11/19 14:13 SP (Rec: 09/11/19 15:23 SP [email or web address]) Physical Therapy Treatment Exercises Exercises Ankle Pumps,Gluteal Sets,Quad Sets,Heel Slides,Seated Knee Flexion/Extension Knee ROM Measurement approx 80* AAROM heel slide with eduacation use strap Education Education Provided Precautions,Weight Bearing Status,Post-Op Packet,Safety M7 PT-IP Assessment and Plan Start: 09/10/19 12:44 Freq: NEEDED Status: Active Protocol: Document 09/11/19 14:13 SP (Rec: 09/11/19 15:23 SP [email or web address]) PT Summary Assessment and Plan Potential Rehabilitation Potential Good Status of Condition at Evaluation Evolving Summary Impairments Pain,ROM,Strength,Balance, Coordination,Sensation,Tone, Cognition,Bed Mobility, Transfers,Gait,Activity Tolerance Progress Towards Goals Progressing Toward Goals,Slow Progress due to Pain,Slow Progress due to Activity Tolerance Assessment Summary Pt CGA- min during bed mobility see com ments, transfer CGA- min, gait CGA and balance at sink SBA usign FWW, cuing R knee flexion, heel toe gait and step over step patterning. Pt required occasional cuing for proper FWW and hand placement for safety, requires 1 person assist at this time for safety cuing. Recommend shelter for strengthening, balance, ROM and safety techniques and stair mgt training for safety DC home, lives alone and needs to be independent. Goals Bed Mobility Goal Standby Assistance Transfer Goal Standby Assistance,Front Wheeled Walker Gait Goal Standby Assistance,Front Wheel Walker Gait Distance 100 Other Goals up/down 2 steps L rail ascending CGA Days to Meet Goals 10 Frequency of Treatment Frequency Of Treatment Twice a Day Treatment Plan Physical Therapy Treatment Plan Bed Mobility Training,Transfer Training,Gait Training, Therapeutic Exercise,Balance Retraining,Post Op Education, Discharge Planning,Hot or Cold Pack,Neuromuscular Re-ed, Coordination Retraining,Manual Therapy Other Recommendations and Next Treatment ambulation possible w/c follow Focus secondary to decreased acitivity tolerance and strength, bed mobilitiy, stair mgt. Recommendations To Nursing Amount of Assist Needed 1 Person Assist Discharge Recommendations PT Discharge Recommendations SNF Rehab Transportation Needs at Discharge Private Vehicle,Wheelchair/ Cabulance
--- NOTE | 2019-09-11 17:07 | PC.NURSE ---
Addendum entered by Coral Young R.N. 09/11/19 20:51: Pt had relatively uneventful evening. Some forgetfulness later in evening, and thinking there are people in her bed. Denies discomfort. LOIS CDI. HL intact. Stable post op course. To SNF on [place] IS possible 09/13 Call light w/in reach, bed alarm on for pt safety. Continue w/plan of care. Original Note: Pt sitting in chair. Denies discomfort at this time. Lungs clear/diminished, SpO2 96% RA LOIS Dsg to surgical knee CDI HL right hand intact. Call light w/in reach. Chair alarm on for pt safety.
--- NOTE | 2019-09-12 | DI.US.S_ITS ---
PROCEDURE: US PERIPH VENOUS LOW EXTREM RT INDICATIONS: POST OP RTKA, R CALF TENDER TO PALPATION TECHNIQUE: Real-time imaging, as well as color and pulse Doppler interrogation, were performed of the lower extremity deep veins from the inguinal ligament to the popliteal fossa. The examination is very limited due to patient body habitus, extremity edema, and rigidness of the leg. COMPARISON: [facility], CR, XR KNEE RT 1TO2V, 09/10/2019, 5:09. [facility], CR, XR KNEE RT 1TO2V, 09/10/2019, 8:22. FINDINGS: The greater saphenous vein, common femoral vein, and profunda femoris vein 8 shows normal flow without thrombus. The proximal superficial femoral vein appears patent as does the middle third of the distal superficial femoral vein cannot be identified as a normal patent structure. The at the popliteal fossa a normal popliteal vein also could not be identified with internal normal flow. IMPRESSION: The study is quite limited as discussed above, with venous ultrasound findings suggestive of thrombosis involving the distal superficial femoral vein and popliteal vein. CT venogram could be utilized for more accurate assessment. Dictated by: Arnol Bravo M.D. on 09/13/2019 at 8:40 Approved by: Arnol Bravo M.D. on 09/13/2019 at 8:45
[2019-09-12 03:50] VITALS: BP 145/64; PULSE 81; RESP 18; TEMP 36.7; O2SAT 95
[2019-09-12 07:38] VITALS: BP 152/59; PULSE 79; RESP 16; TEMP 36.7; O2SAT 99
[2019-09-12] MEDS: ASPIRIN EC 81 MG TABLET PO ×2 (08:52→20:25)
[2019-09-12] MEDS: DOCUSATE 100 MG CAPSULE PO ×2 (08:52→20:24)
[2019-09-12] MEDS: ACETAMINOPHEN 325 MG TABLET 650 MG PO ×3 (08:52→20:25)
--- NOTE | 2019-09-12 09:30 | PT.IPTN ---
Current Diagnoses Unilateral primary osteoarthritis, right knee (09/09/19) Other specified joint disorders, right knee (09/09/19) Surgery Performed Operation Date: 09/09/19 14:15 Actual Procedures p Total Knee Arthroplasty(Right) - Neal Asher MD Physical Therapy Treatment Note M2 PT-IP Current Condition Start: 09/10/19 12:44 Freq: NEEDED Status: Active Protocol: Document 09/10/19 10:15 AB (Rec: 09/10/19 13:06 AB [email or web address]) Physical Therapy Current Condition Current Condition Evaluation Date 09/10/19 Treatment Diagnosis s/p R TKA; difficulty in walking Onset Date 09/09/2019 Precautions Other Precautions falls Weight Bearing Status Weight Bearing Status Weight Bear as Tolerated Allowed Weight Bearing Amount (enter % WBAT RLE or #) (%) M3 PT-IP Subjective Start: 09/10/19 12:44 Freq: NEEDED Status: Active Protocol: Document 09/12/19 09:10 SP (Rec: 09/12/19 10:28 SP [id number]) Subjective Physical Therapy Visit Type Type Treatment Note Visit Start Time 09:10 Visit Stop Time 09:30 Total Visit Minutes 20 Number of MANAGER READING Visits 2 Physical Therapy Visit Comments Patient Comments Pt agreeable to PT today. Therapy Pain Assessment Pain When Pain Assessed During Mobility Pain Present Pain Present Pain Reported Location Right Knee Intensity 5 Scale Used Numeric (1 - 10) Pain Management Techniques Apply Cold,Re-positioning, Timing of Activity with Medications M4 PT-IP Mobility and Gait Start: 09/10/19 12:44 Freq: NEEDED Status: Active Protocol: Document 09/12/19 09:10 SP (Rec: 09/12/19 10:28 SP [email or web address]) PT-Transfer Assessment Sit to and From Stand Sit to and from Stand Contact Guard Assistance,Use of Upper Extremities Equipment Transfer Assistive Device Front Wheeled Walker Orthotic/Prosthetic Devices or Brace: No Transfers Transfer Destination Chair Transfer Technique pt ambulated using fWW. Transfer Ability Level of Assist Contact Guard Assistance,Use of Upper Extremities Comments Mobility Comments Pt was seated up in chair when arrived. Pt required assist to remove cushion under BLE to be able to scoot forward in chair herself. Sit <> stand with good verbal self reminders for form and demonstration proper hand placement to push up from chair, use of FWW. Initially step to gait pattern and heavily WB through BUE on FWW but decreased as distance progressed into hallway step to gait to step over step heel toe gait after 15 ft CGA. Pt was ableto ambulate approx 150 ft total, cued for step pivot and small turns withFWW as another strategy than wide step over step patterning, patient stated understood but minimal follow through in demostration. Pt good FWW positioning and slow descent into chair. Pt had chair alarm on and call light and all needs in reach when left. Gait Assessment Gait Gait Assistance Required: Contact Guard Assist Distance (Feet) 150 Able to Maintain Weight Bearing Status Yes During Gait Assistive Devices Assistive Device Gait Belt,Front Wheeled Walker Orthotic/Prosthetic Devices or Brace: No Gait Deviations General Gait Pattern Antalgic,Decreased Stride Length,Decreased Feet Clearance,Step-to Gait Factors Limiting Gait Function Factors Limiting Gait Function Decreased Activity Tolerance, Decreased Sensation,Decreased Strength,Difficulty Following Directions,Limited Range of Motion,Pain Comments Gait Comments Pt was ableto increase distance approx 150 ft using FWW CGA initially step to then progressed to step over step gait, wide turns, education on smaller pivot turns in hallway with difficulty understanding. Stair Climbing Assessment Comments Stair Climbing Comments not assessed. PT-Balance Assessment Sitting Balance and Reactions Static Sitting Balance Ability Normal Dynamic Sitting Balance Ability Good Standing Balance and Reactions Static Standing Balance Ability Good Dynamic Standing Balance Ability Fair Device Used FWW M5 PT-IP Objective Assessments Start: 09/10/19 12:44 Freq: NEEDED Status: Active Protocol: Document 09/10/19 10:15 AB (Rec: 09/10/19 13:06 AB [email or web address]) Orientation Orientation/Cognition Level of Alertness Alert Orientation Name,Age,Month,Year,Place, Situation Safety Awareness Decreased Safety Awareness Memory Description Short Term Impaired Gross Range of Motion Lower Extremity ROM Assessment Right Impaired Impairments R knee flexion : ~ 60 deg Strength Lower Extremity Strength Assessment Right Impaired Hip 3+/5 Knee 3-/5 Coordination Assessment Gross Coordination Gross Coordination WNL Sensation Assessment Sensation Gross Sensation WNL Muscle Tone Muscle Tone WNL Yes M6 PT-IP Treatment Start: 09/10/19 12:44 Freq: NEEDED Status: Active Protocol: Document 09/12/19 09:10 SP (Rec: 09/12/19 10:28 SP [id number]) Physical Therapy Treatment Exercises Exercises Ankle Pumps,Heel Slides,Seated Knee Flexion/Extension Knee ROM Measurement approx 80* AAROM heel slide with eduacation AROM seated Education Education Provided Precautions,Weight Bearing Status,Post-Op Packet,Safety M7 PT-IP Assessment and Plan Start: 09/10/19 12:44 Freq: NEEDED Status: Active Protocol: Document 09/12/19 09:10 SP (Rec: 09/12/19 10:28 SP [id number]) PT Summary Assessment and Plan Potential Rehabilitation Potential Good Status of Condition at Evaluation Evolving Summary Impairments Pain,ROM,Strength,Balance, Coordination,Sensation,Tone, Cognition,Bed Mobility, Transfers,Gait,Activity Tolerance Progress Towards Goals Progressing Toward Goals,Slow Progress due to Pain,Slow Progress due to Activity Tolerance Assessment Summary Pt CGA sit to stand see comments, gait CGA and heel toe gait and step over step patterning as distance progressed using FWW. Recommend [facility] for strengthening, balance, ROM and safety techniques and stair mgt training for safety DC home, lives alone and needs to be independent. Goals Bed Mobility Goal Standby Assistance Transfer Goal Standby Assistance,Front Wheeled Walker Gait Goal Standby Assistance,Front Wheel Walker Gait Distance 100 Other Goals up/down 2 steps L rail ascending CGA Days to Meet Goals 10 Frequency of Treatment Frequency Of Treatment Twice a Day Treatment Plan Physical Therapy Treatment Plan Bed Mobility Training,Transfer Training,Gait Training, Therapeutic Exercise,Balance Retraining,Post Op Education, Discharge Planning,Hot or Cold Pack,Neuromuscular Re-ed, Coordination Retraining,Manual Therapy Other Recommendations and Next Treatment ambulation, bed mobilitiy, Focus stair mgt. Recommendations To Nursing Amount of Assist Needed 1 Person Assist Discharge Recommendations PT Discharge Recommendations SNF Rehab Transportation Needs at Discharge Private Vehicle,Wheelchair/ Cabulance
[2019-09-12 10:00] VITALS: BP 131/60
[2019-09-12 11:10] VITALS: BP 123/59; PULSE 82; RESP 16; TEMP 36.7; O2SAT 96
--- NOTE | 2019-09-12 15:52 | PT.IPTN ---
Current Diagnoses Unilateral primary osteoarthritis, right knee (09/09/19) Other specified joint disorders, right knee (09/09/19) Surgery Performed Operation Date: 09/09/19 14:15 Actual Procedures p Total Knee Arthroplasty(Right) - Neal Asher MD Physical Therapy Treatment Note M2 PT-IP Current Condition Start: 09/10/19 12:44 Freq: NEEDED Status: Active Protocol: Document 09/10/19 10:15 AB (Rec: 09/10/19 13:06 AB [id number]) Physical Therapy Current Condition Current Condition Evaluation Date 09/10/19 Treatment Diagnosis s/p R TKA; difficulty in walking Onset Date 09/09/2019 Precautions Other Precautions falls Weight Bearing Status Weight Bearing Status Weight Bear as Tolerated Allowed Weight Bearing Amount (enter % WBAT RLE or #) (%) M3 PT-IP Subjective Start: 09/10/19 12:44 Freq: NEEDED Status: Active Protocol: Document 09/12/19 15:19 SP (Rec: 09/12/19 17:08 SP [id number]) Subjective Physical Therapy Visit Type Type Treatment Note Visit Start Time 15:19 Visit Stop Time 15:52 Total Visit Minutes 33 Number of [employer]TER [employer] SUPERVISOR Visits 3 Physical Therapy Visit Comments Patient Comments Pt agreeable to working with PT. Therapy Pain Assessment Pain When Pain Assessed During Mobility Pain Present Pain Present Pain Reported Location Right Knee Intensity 5 Scale Used Numeric (1 - 10) Pain Management Techniques Re-positioning,Timing of Activity with Medications M4 PT-IP Mobility and Gait Start: 09/10/19 12:44 Freq: NEEDED Status: Active Protocol: Document 09/12/19 15:19 SP (Rec: 09/12/19 17:08 SP [id number]) PT-Transfer Assessment Sit to and From Stand Sit to and from Stand Standby Assistance,Contact Guard Assistance,Use of Upper Extremities Equipment Transfer Assistive Device Gait Belt,Front Wheeled Walker Orthotic/Prosthetic Devices or Brace: No Transfers Transfer Destination Chair,Wheelchair Transfer Technique pt ambulated using fWW. Transfer Ability Level of Assist Standby Assistance,Contact Guard Assistance,Use of Upper Extremities Comments Mobility Comments Pt was up in the chair when arrived. sit <> stand SBA- CGA with from chair and use of w/ c in hallway on a further distance walk. Pt demonstrated good hand placement and body and FWW positioning for safety . Pt was up in her chair at end of tx with chair alarm donned and call light and all needs in reach when left. Gait Assessment Gait Gait Assistance Required: Contact Guard Assist Distance (Feet) 225 Able to Maintain Weight Bearing Status Yes During Gait Assistive Devices Assistive Device Gait Belt,Front Wheeled Walker Orthotic/Prosthetic Devices or Brace: No Gait Deviations General Gait Pattern Antalgic,Decreased Stride Length,Decreased Feet Clearance Factors Limiting Gait Function Factors Limiting Gait Function Decreased Activity Tolerance, Decreased Sensation,Decreased Strength,Difficulty Following Directions,Limited Range of Motion,Pain Comments Gait Comments Pt initially demonstrates step to gait when first comes to standing (using FWW CGA) then progresses to step over step stating it's a bit stiff but always loosens up when I walk further. Earlier a walk to the bathroom I the pain didn't let up but maybe it was to short of a distance. [employer] encouraged another walk before going to bed with nursing coordinator. Pt demonstrated improvement in R knee flexion and heel toe gait as distance progressed and walked further 225 ft (room to end of hallway near stair) with FWW w/c follow dur to decreased activity tolerance to get to stairs, CGA provided intially then decreased to SBA and 65 ft after 3 stair mgt. Stair Climbing Assessment Evaluation Level of Assist On Stairs Minimal Assistance,Moderate Assistance,1 Person Assistance Devices Stair Climbing Assistive Devices Left Railing Technique/Endurance Stair Climbing Direction Ascend and Descend Stair Climbing Technique Step to Step Number of Steps Climbed 3 Stair Climbing Set # Repetitions (reps) 1 Comments Stair Climbing Comments Pt was ableto ascend/descend 3 stairs using LHR with BUE slight side step descending, required Min A of 1 person to assist transition to next step step to gait leading with LLE up/ RLE down Mod A for last step and therapist supported anterior L knee to prevent buckling, noted creaking in L knee during descent more on last step then first 2. No LOB but patient exerted alot of energy, stopped for rest on 2nd step while ascending for recovery. PT-Balance Assessment Sitting Balance and Reactions Static Sitting Balance Ability Normal Dynamic Sitting Balance Ability Good Standing Balance and Reactions Static Standing Balance Ability Good Dynamic Standing Balance Ability Fair Device Used FWW M5 PT-IP Objective Assessments Start: 09/10/19 12:44 Freq: NEEDED Status: Active Protocol: Document 09/10/19 10:15 AB (Rec: 09/10/19 13:06 AB [id number]) Orientation Orientation/Cognition Level of Alertness Alert Orientation Name,Age,Month,Year,Place, Situation Safety Awareness Decreased Safety Awareness Memory Description Short Term Impaired Gross Range of Motion Lower Extremity ROM Assessment Right Impaired Impairments R knee flexion : ~ 60 deg Strength Lower Extremity Strength Assessment Right Impaired Hip 3+/5 Knee 3-/5 Coordination Assessment Gross Coordination Gross Coordination WNL Sensation Assessment Sensation Gross Sensation WNL Muscle Tone Muscle Tone WNL Yes M6 PT-IP Treatment Start: 09/10/19 12:44 Freq: NEEDED Status: Active Protocol: Document 09/12/19 15:19 SP (Rec: 09/12/19 17:08 SP [id number]) Physical Therapy Treatment Education Education Provided Precautions,Weight Bearing Status,Post-Op Packet,Safety M7 PT-IP Assessment and Plan Start: 09/10/19 12:44 Freq: NEEDED Status: Active Protocol: Document 09/12/19 15:19 SP (Rec: 09/12/19 17:08 SP [id number]) PT Summary Assessment and Plan Potential Rehabilitation Potential Good Status of Condition at Evaluation Evolving Summary Impairments Pain,ROM,Strength,Balance, Coordination,Sensation,Tone, Cognition,Bed Mobility, Transfers,Gait,Activity Tolerance Progress Towards Goals Progressing Toward Goals,Slow Progress due to Pain,Slow Progress due to Activity Tolerance Assessment Summary Pt required CGA initiallly during STS but decreased SBA during sit to stand from w/c. Pt continues to demonstrate step to gait initally but progresses to step over step heel toe gait as distance progresses using FWW CGA- SBA and w/c follow secondary to decreased activity tolerance. Pt completed stair training step to gait LHR BUE with required Min- Mod A of 1 secondary to decrease strength and activity tolerance. Pt will need to be independent prior to DC for she lives alone. Recommend [facility] for strengthening, balance, ROM and stair mgt training for safety DC home. Goals Bed Mobility Goal Standby Assistance Transfer Goal Standby Assistance,Front Wheeled Walker Gait Goal Standby Assistance,Front Wheel Walker Gait Distance 100 Other Goals up/down 2 steps L rail ascending CGA Days to Meet Goals 10 Frequency of Treatment Frequency Of Treatment Twice a Day Treatment Plan Physical Therapy Treatment Plan Bed Mobility Training,Transfer Training,Gait Training, Therapeutic Exercise,Balance Retraining,Post Op Education, Discharge Planning,Hot or Cold Pack,Neuromuscular Re-ed, Coordination Retraining,Manual Therapy Other Recommendations and Next Treatment Reassess bed mobility level of Focus independence, tranfers, and gait using FWW, stair mgt, review post op HEP. Recommendations To Nursing Amount of Assist Needed 1 Person Assist Discharge Recommendations PT Discharge Recommendations SNF Rehab Transportation Needs at Discharge Private Vehicle,Wheelchair/ Cabulance
[2019-09-12 15:56] VITALS: BP 147/62; PULSE 89; RESP 19; TEMP 37.2; O2SAT 100
--- NOTE | 2019-09-12 16:25 | P.PN_ITS ---
Subjective Subjective Date Patient Seen: 09/12/19 Time Patient Seen: 16:25 Interval history: Patient states she has no pain in right knee at rest. Has mild to moderate pain when ambulating. Complains of intermittent pain in R calf. Per nurse, patient has been forgetful. During conversation, patient had difficulty recalling previous conversations with Dr. Asher. Voiding without difficulty. Denies fever, chills, chest pain, shortness of breath, nausea, vomiting. Exam Vital Signs (past 8 hours): - 09/12/19 10:00 09/12/19 11:10 09/12/19 15:56 Temperature 98.0 F 98.9 F Pulse Rate 82 89 Respiratory Rate 16 19 Blood Pressure 131/60 123/59 L 147/62 H Pulse Oximetry 96 100 Oxygen Delivery Method Room Air Oxygen Flow Rate 0 Narrative Exam Narrative: 84 year old F, sitting comfortably in chair, in no apparent distress. A&Ox3. LOIS CDI and functioning. Sensory function grossly intact to light touch in LE BL. Able actively dorsiflex/plantar flex. R calf tender to palpation. L calf non tender to palpation, warm, compressible. Objective Labs Result Diagrams: 09/10/19 05:30 09/11/19 05:57 Assessment & Plan Post-op Postoperative Procedures: Procedures Operation Date: 09/09/19 14:15 Actual Procedures Side Surgeon p Total Knee Arthroplasty Right Neal Asher MD Postoperative plan narrative: postop day 3 status post right total knee arthroplasty. R calf tender to palpation - ordered ultrasound of RLE to r/o DVT Patient lives alone. Currently requiring 2 person assist with physical therapy. Physical therapy is recommended group home facility placement. Patient will mobilize with physical therapy today. Likely discharge to group home facility tomorrow. Time Spent With Patient Time with patient: less than 15 minutes Quality VTE Deep Vein Thrombosis/Pulmonary Embolism Present on Admission: No
[2019-09-12 19:40] VITALS: BP 142/68; PULSE 91; RESP 18; TEMP 37.3; O2SAT 97
[2019-09-13 00:15] VITALS: BP 139/69; PULSE 84; RESP 18; TEMP 37.1; O2SAT 94
[2019-09-13 03:27] VITALS: BP 165/77; PULSE 91; RESP 18; TEMP 37.1; O2SAT 98
--- NOTE | 2019-09-13 03:47 | PC.NURSE ---
Patient is alert and orientated. Patient VSS, patient denies pain while lying and has some while ambulating, but said was tolerable. Right knee is edematous 2-3+, along with bilateral ankles and feet. CMS is intact, Dressing is clean/dry and intact. Patient is ambulating to bathroom w/ 1 person assist and FWW. Bed is low and locked, call light is within reach and bed alarm is activated.
--- NOTE | 2019-09-13 07:34 | P.DS_ITS ---
History of Present Illness History of Present Illness Date Patient Seen: 09/13/19 Time Patient Seen: 07:34 Chief complaint: 92113 Right Total Kneee Arthroplasty Narrative: Patient consented to total knee arthroplasty. She failed conservative measures. Discharge Providers Provider Date of admission: 09/09/19 12:00 Discharge Date: 09/13/19 Primary care physician: Ritika Ocampo MD Consults: 09/09/19 06:00 Consult to Anesthesiology Routine Comment: Consulting Provider: Anesthesiologist Reason for consultation: Regional block for post operative pain control 09/09/19 19:37 Consult to Discharge Planning Routine Comment: Consult to Physical Therapy Evaluate & Treat Comment: Physician Instructions: postop TKA protocol Consult to Respiratory Therapy Evaluate & Treat Comment: Physician Instructions: Evaluate and treat Discharge provider: Karla Adames PA-C Summary Hospital Course Discharge Diagnosis: s/p TKA Hospital Course: Dilys admitted for total knee arthroplasty with Dr. Asher. Patient was initially confused after surgery from anesthetic and Oxycodone. She fell the night of surgery. X-rays reviewed and no fractures. She was slow to mobilize and with pain in the operative leg. There was concern for DVT POD #3 and US was ordered. She had acute urinary retention but this resolved. Results were inconclusive. Patient did really well POD #4 and was ready to transition to SNF. She was alert and oriented X3. She was eating and voiding without difficulty or assistance. Recommending she get repeat US in one week. No change in anticoagulation plan. Status at Discharge Functional status at discharge: uses cane/walker Exam Vital Signs (past 8 hours): - 09/13/19 00:15 09/13/19 03:27 Temperature 98.7 F 98.8 F Pulse Rate 84 91 H Respiratory Rate 18 18 Blood Pressure 139/69 165/77 H Pulse Oximetry 94 98 Oxygen Delivery Method Room Air Oxygen Flow Rate 0 Narrative Exam Narrative: Patient sitting in bedside chair in NAD. She is alert and oriented X3. Calves were soft, compressible, and nontender bilaterally. She could actively dorisflex and plantarflex. DP pulses symmetrical. No pain today with Tylenol. No complaints this morning. Objective Labs Result Diagrams: 09/10/19 05:30 09/11/19 05:57 Discharge Plan Discharge Plan Patient Disposition: SNF Transfer to: [facility] Under care of provider: Facility MD Consult as needed: Dental, Hearing, Mental health, Podiatry and Vision Discharge orders & Medications Prescriptions: New aspirin 81 mg Tablet,Delayed Release (Dr/Ec) 81 mg PO BID Qty: 30 RF: 0 docusate sodium [DOK] 100 mg Capsule 100 mg PO BID Qty: 30 RF: 0 ibuprofen 400 mg tablet 400 mg PO Q6H PRN (Reason: pain) Qty: 60 RF: 0 Continued acetaminophen 500 mg Capsule 500 mg PO Q6H PRN (Reason: Pain) RF: 0 multivitamin Tablet 1 tab PO DAILY RF: 0 Discontinued oxycodone-acetaminophen 5-325 mg Tablet 1 - 2 tab PO Q4-6H PRN (Reason: Pain) RF: 0 Follow up/Referrals: Ritika Ocampo MD [Primary Care Provider] - Neal Asher MD [Physician] - Diet/Activity/Treatments Diet: Regular Other treatments: Repeat US in one week. Skin/Wound/Dressing Care Report to your healthcare provider any signs of infection, such as:: chills, fever and increased pain Dressing: Leave in place until appointment [facility] Reason for rehabilitation: Post-operative therapy Rehab type: Physical therapy and Occupational therapy Discharge Data Primary Care Provider: Ritika Ocampo Discharges patient from system. Discharge Date/Time: 09/13/19 11:12 Quality VTE Deep Vein Thrombosis/Pulmonary Embolism Present on Admission: No
[2019-09-13] MEDS: ASPIRIN EC 81 MG TABLET PO (08:33)
[2019-09-13] MEDS: IBUPROFEN 600 MG TABLET PO (08:34)
[2019-09-13] MEDS: ACETAMINOPHEN 325 MG TABLET 650 MG PO (08:34)
[2019-09-13] MEDS: DOCUSATE 100 MG CAPSULE PO (08:34)
[2019-09-13 08:47] VITALS: BP 158/71; PULSE 83; RESP 16; TEMP 37.2; O2SAT 96
--- NOTE | 2019-09-13 09:02 | CM.DPC ---
DCP: continued: DC order to snf setting is noted. Liliana/[facility] is updated, can send w/c van to pick pt up at 1100. Pt is updated and agreeable to same. She states she will call her friend with the update. RN Melly is updated including need to clarify order on the snf orders, completed by mark Mei. (pt is currently on a general diet, per Melly). SNF orders are faxed to [facility]. PASRR: reviewed, copy to scan, faxed to [facility] and placed into snf packet. Will follow prn until pt leaves.
--- NOTE | 2019-09-13 11:11 | PC.NURSE ---
Pt is showered, dressed and ready for discharge to SNF. Report called to Rebecca BARBOZA and all questions answered. Pt out via w/c by [employer] transport personnel with all belongings.
== END 2019-09-13 11:12 | DRG 470 ==
LOC: AC 09-13 07:20 → OR 09-13 13:18 → AC 09-13 13:23
PROVIDERS: Physician Assistant Surgical; Admitting Provider Orthopaedic Surgery Adult Reconstructive Orthopaedic Surgery; PCP Family Medicine; Referring Provider Orthopaedic Surgery Adult Reconstructive Orthopaedic Surgery; Visit Provider Orthopaedic Surgery Adult Reconstructive Orthopaedic Surgery
PROC: 0SRC0JZ Replacement of Right Knee Joint with Synthetic Substitute, Open Approach (ICD-10-PCS; CPT 27447; principal; 2019-09-09 14:15)
DX: M17.11 Unilateral primary osteoarthritis, right knee (principal); M25.861 Other specified joint disorders, right knee; R41.0 Disorientation, unspecified; R33.9 Retention of urine, unspecified; M79.661 Pain in right lower leg; W18.30XA Fall on same level, unspecified, initial encounter; Y92.231 Patient bathroom in hospital as the place of occurrence of the external cause; T41.205A Adverse effect of unspecified general anesthetics, initial encounter; T40.2X5A Adverse effect of other opioids, initial encounter; Z87.891 Personal history of nicotine dependence
CPT/HCPCS: 36415; 73560; 80048; 85014; 85018; 85025; 93971; 97110; 97116; 97162; 97530; C1776; J0690; J1885; J2270; J2274; J2405; J2704

== ENCOUNTER → 2019-09-16 13:47 | Outpatient (CLI) | payer MEDICARE, SELFPAY ==
[2019-09-09 19:51] VITALS: BMI 32.8
--- NOTE | 2019-09-16 | DI.CT.S_ITS ---
PROCEDURE: CT LE RT W CON INDICATIONS: Acute embolism and thrombosis. RIGHT CALF SWELLING TECHNIQUE: After the administration of intravenous contrast, 3 mm axial sections acquired from the proximal femur through the tibial plateau, with coronal and sagittal reformats. COMPARISON: None. FINDINGS: Image quality: Suboptimal evaluation due to streak artifact from associated knee arthroplasty hardware.. Bones: Status post knee arthroplasty, with expected postoperative alignment. No acute fracture identified. Circumferential subcutaneous cellulitis noted. There are atherosclerotic arterial calcifications. Where visualized, no definite intraluminal venous filling defect is identified. No gross enlargement. In the region of the distal femur/proximal tibia, the distal femoral vein and popliteal vein are obscured IMPRESSION: Suboptimal evaluation due to streak artifact from knee arthroplasty hardware. In particular, the distal femoral vein and popliteal vein are obscured. Elsewhere, no gross intraluminal filling defect however small/nonocclusive clot cannot be excluded. Circumferential swelling and edema. Dictated by: Magdiel Yoon M.D. on 09/16/2019 at 16:31 Approved by: Magdiel Yoon M.D. on 09/16/2019 at 16:38
== END ==
PROVIDERS: PCP Family Medicine; Referring Provider Licensed Practical Nurse; Visit Provider Licensed Practical Nurse
DX: I82.401 Acute embolism and thrombosis of unspecified deep veins of right lower extremity (principal); M79.89 Other specified soft tissue disorders; Z96.651 Presence of right artificial knee joint
CPT/HCPCS: 73701; Q9967

== ENCOUNTER → 2019-09-17 11:52 | Outpatient (CLI) | payer MEDICARE, SELFPAY ==
[2019-09-09 19:51] VITALS: BMI 32.8
--- NOTE | 2019-09-17 12:01 | DI.US.S_ITS ---
PROCEDURE: US PERIP VENOUS LOW EXTREM RT INDICATIONS: RT LEG PAIN TECHNIQUE: Real-time imaging, as well as color and pulse Doppler interrogation, were performed of the lower extremity deep veins from the inguinal ligament to the popliteal fossa. COMPARISON: [facility], US, US PERIP VENOUS LOW EXTREM RT, 09/12/2019, 16:55. [facility], CT, CT LE RT W CON, 09/16/2019, 13:56. FINDINGS: The common femoral, femoral and popliteal veins are normally compressible, and free of intraluminal thrombus. Color and pulse Doppler demonstrate normal phasic intraluminal flow. There is normal augmentation response to distal compression maneuver. IMPRESSION: Negative for deep venous thrombosis. Dictated by: Bernabe Marshall M.D. on 09/17/2019 at 11:57 Approved by: Bernabe Marshall M.D. on 09/17/2019 at 11:58
== END ==
PROVIDERS: PCP Family Medicine; Referring Provider Internal Medicine; Visit Provider Internal Medicine
DX: M79.604 Pain in right leg (principal)
CPT/HCPCS: 93971

== ENCOUNTER → 2021-02-10 14:12 | Outpatient (CLI) | payer MEDICARE, SELFPAY ==
[2019-09-09 19:51] VITALS: BMI 32.8
--- NOTE | 2021-02-10 14:14 | DI.MRI.S_ITS ---
PROCEDURE: MR LUMBAR SPINE WO CON INDICATIONS: Weakness TECHNIQUE: Noncontrast sagittal T1 spin echo and T2 fast echo, sagittal STIR, axial T1 and T2 fast spin echo through the lumbar spine. In cases with scoliosis, additional coronal T2 fast spin echo may be performed. COMPARISON: None. FINDINGS: Image quality: Excellent. Alignment and Curvature: Mild levo curvature centered at L3-L4. Grade 1 degenerative anterolisthesis of L4 on L5, measuring 7 mm. The other vertebral bodies are normally aligned. Bone Marrow: Marrow is of normal overall signal. No acute vertebral body compression fractures. Spinal Cord: Conus medullaris terminates at the L1-L2 level. Visualized cord demonstrates normal signal and size. Paraspinous Soft Tissues: No paravertebral masses. T12-L1: No canal stenosis or foraminal stenosis. L1-L2: Mild disc bulge. No canal stenosis or foraminal stenosis. L2-L3: Posterior disc bulge plus osteophyte. Bilateral facet hypertrophy. Rwqi-si-hulwbrcp canal stenosis. Mild bilateral foraminal stenosis. L3-L4: Posterior disc post osteophyte. Facet hypertrophy. [id number]-[id number] canal stenosis. Moderate right foraminal narrowing with mild flattening deformity on the exiting right L3 nerve root. Mild left foraminal narrowing. L4-L5: High-grade multifactorial canal stenosis secondary to exuberant facet hypertrophy, degenerative anterolisthesis of L4 on L5, and posterior disc bulge. Severe right foraminal narrowing with foraminal right L4 nerve root impingement. L5-S1: Severe canal stenosis secondary to disc bulge and exuberant facet hypertrophy. Rlfo-hl-sbksagvb right foraminal narrowing. Severe left foraminal narrowing with left foraminal L5 nerve root impingement. IMPRESSION: 1. Multifactorial high-grade canal stenosis at L4-L5 as well as severe right foraminal narrowing. 2. Severe canal stenosis at L5-S1 with severe associated left foraminal narrowing. Dictated by: Aly Abdullahi M.D. on 02/10/2021 at 15:25 Approved by: Aly Abdullahi M.D. on 02/10/2021 at 15:31
== END ==
PROVIDERS: PCP Family Medicine; Referring Provider Family Medicine; Visit Provider Family Medicine
DX: R53.1 Weakness (principal); M48.061 Spinal stenosis, lumbar region without neurogenic claudication; M48.07 Spinal stenosis, lumbosacral region
CPT/HCPCS: 72148